=== PATIENT | female | born 1955 | race Caucasian/White ===

== ENCOUNTER → 2023-08-23 | Outpatient (CLI) | payer MEDICARE, SELFPAY ==
--- NOTE | 2023-08-23 | KNEE_PTH ---
PATIENT: CODI RSOA [id number] AGE/SX: 68/F ROOM: RE08/23/[address]: Dr. Praveen Minor MD : 1955 BED: DIS: 08/23/2023 SPEC #: [id number] RECD: 08/24/23 10:51 STATUS: KITTY RECandelaria #: [id number] RADHA: 08/23/23 00:[address]: Praveen Minor DEPT: SURGICAL PATHOLOGY RECD BY: Prachi Polanco ENTERED: 08/24/23 10:51 SP TYPE: TOTAL KNEE OTHR DR: JABIER Tissues: Knee, NOS Procedures: Decalcification bone/plaque Surgery Specimen Level IV HEADER OPERATION: Right total knee replacement PRE-OP DIAGNOSIS: Unilateral primary osteoarthritis right knee TISSUE SUBMITTED: Right knee bone and tissue MICROSCOPIC DIAGNOSIS Bone and tissue of right knee, total knee resection: Severe degenerative joint disease. Mild synovial hyperplasia. AM:mara 08/27/2023 MICROSCOPIC DESCRIPTION Slides are reviewed. GROSS DESCRIPTION Received is one container designated right knee bone and tissue. The specimen consists of multiple fragments of edwards-yellow bone measuring in aggregate 14.0 x 13.0 x 2.0 cm. Also in the specimen container are multiple fragments of yellow-white soft tissue measuring in aggregate 7.0 x 5.0 x 2.2 cm. A number of bony fragments contain articular surfaces consistent with tibial plateau and femoral condyle and displaying prominent osteophyte formation, eburnation and bone erosion. Day Care Aide sections are submitted in two cassettes as follows: 1 - soft tissue, 2 - bone after decalcification. / AM:mara 08/24/2023 TC:5 CPT: [id number], [id number]
== END | disposition home or self-care (01) ==
LOC: LABSPEC 15:24
PROVIDERS: Referring Provider Orthopaedic Surgery; Visit Provider Orthopaedic Surgery
DX: M17.11 Unilateral primary osteoarthritis, right knee (principal)
CPT/HCPCS: 88305; 88311

== ENCOUNTER → 2024-08-11 | Outpatient (CLI) | payer MEDICARE, SELFPAY ==
--- NOTE | 2024-08-11 | KNEE_PTH ---
PATIENT: CODI ROSA [facility][id number] AGE/SX: 69/F ROOM: RE08/11/[address]: Dr. Praveen Minor MD : 1955 BED: DIS: 08/11/2024 SPEC #: [id number] RECD: 08/13/24 14:57 STATUS: KITTY CARLISLECandelaria #: [id number] RADHA: 08/11/24 00:[address]: Praveen Minor DEPT: SURGICAL PATHOLOGY RECD BY: Elli Knox Tissues: Knee, NOS Procedures: Decalcification bone/plaque Surgery Specimen Level IV HEADER OPERATION: Left total knee replacement PRE-OP DIAGNOSIS: Left knee grade 4 primary osteoarthritis TISSUE SUBMITTED: Grewal and soft tissue left knee MICROSCOPIC DIAGNOSIS Bone and soft tissue, left knee, total knee replacement/resection: Pieces of bone with degenerative osteoarthritic changes. Fibroadipose tissue, fibroconnective tissue and reactive synovial tissue. SJ: 08/17/2024 MICROSCOPIC DESCRIPTION Slides are reviewed. GROSS DESCRIPTION Received is one container designated bone and soft tissue left knee. The specimen consists of multiple fragments of edwards-yellow bone measuring in aggregate 12.0 x 12.0 x 4.0 cm. Also in the specimen container are multiple fragments of yellow-white soft tissue measuring in aggregate 7.0 x 4.5 x 1.5 cm. A number of bony fragments contain articular surfaces consistent with tibial plateau and femoral condyle and displaying prominent osteophyte formation, eburnation and bone erosion. Sand Plant Attendant sections are submitted in two cassettes as follows: 1 - soft tissue, 2 - bone after decalcification. / JAVIER. 08/14/2024 TC:5 [facility]: [id number]
== END | disposition home or self-care (01) ==
PROVIDERS: Referring Provider Orthopaedic Surgery; Visit Provider Orthopaedic Surgery
DX: Z96.652 Presence of left artificial knee joint (principal)
CPT/HCPCS: 88305; 88311